=== PATIENT | female | born 1975 | race Caucasian/White ===

== ENCOUNTER 2017-11-24 14:35 | Emergency (ER) | payer OTHER ==
--- NOTE | 2017-11-24 14:44 | ER Report ---
History and Physical Time Seen By MD: 14:50 HPI/ROS CHIEF COMPLAINT: Abdominal pain HISTORY OF PRESENT ILLNESS: This is a 42 year old female. She is having pain in the epigastric area. Has been having pain for the last 4 days, starting on . Seeming to worsen. She has no radiation of pain. Has no nausea. Has had some darks stools, but no blood. No diarrhea. Has been vomiting, and has had a small amount of blood a few times. No fevers or chills. No sick contacts. No bad food exposures. She has never had ulcers in the past, but is on Cellcept with risk for ulcers. REVIEW OF SYSTEMS: Constitutional: No fever or chills. ENT: No sore throat. Cardiovascular: No chest pain. Respiratory: No shortness of breath. Genitourinary: No dysuria. No frequency Musculoskeletal: No musculoskeletal pain. Skin: No rashes. No bruising. Allergies: Uncoded Allergies: MRI CONTRAST (Allergy, Unknown, 11/24/17) Home Meds Active Scripts Ondansetron (ZOFRAN ODT) 4 Mg Tab.rapdis, 4 MG PO Q6H PRN for NAUSEA/VOMITING, #20 TAB.ELDA 0 Refills Prov:PADMINI WELLER MD 11/24/17 Hydrocodone Bit/Acetaminophen (HYDROCODON-ACETAMINOPHEN 5-325) 1 Each Tablet, 1 EACH PO Q4H PRN for PAIN, #12 TAB 0 Refills Prov:PADMINI WELLER MD 11/24/17 Reported Medications Sertraline Hcl (ZOLOFT) 50 Mg Tablet, 1 TAB PO QDAY, TAB 11/24/17 Mycophenolate Mofetil (MYCOPHENOLATE MOFETIL) 500 Mg Tablet, 1000 MG PO BID 11/24/17 Reviewed Nurses Notes: Yes Constitutional Vital Sign - Last 24 Hours 11/24/17 11/24/17 11/24/17 11/24/17 14:45 14:47 15:00 15:05 Temp 98.5 Pulse 98 90 Resp 20 B/P (MAP) 139/84 (102) 139/84 119/83 (95) Pulse Ox 93 93 O2 Delivery Room Air 11/24/17 11/24/17 11/24/17 11/24/17 15:19 15:30 15:35 16:00 Pulse 96 B/P (MAP) 98/67 (77) 113/66 (82) 113/66 (82) Pulse Ox 93 11/24/17 16:05 Pulse 87 Pulse Ox 94 Physical Exam General Appearance: The patient is alert. No acute distress. Eyes: Pupils are equal, round. No pallor, injection or icterus. ENT: Mucous membranes are moist. Normal oral mucosa. Posterior oropharynx is normal. Neck: Supple and non tender. No lymphadenopathy. Respiratory: Lungs are clear to auscultation. Cardiovascular: Regular rate and rhythm. No murmurs, gallops or rubs. Normal capillary refill. Gastrointestinal: Abdomen is soft, tender in epigastric area. No RUQ pain. No ndistended. Guarding, but no rebound. No masses or organomegaly. Normal active bowel sounds. Neurological: Alert and oriented x3. Skin: Warm and dry. Musculoskeletal: No tenderness in palpation of the back and spine. DIFFERENTIAL DIAGNOSIS: After history and physical exam, differential diagnosis was considered for epigastric pain including but not limited to biliary colic, cholecystitis, peptic ulcer disease, pancreatitis, and gastroenteritis. Medical Decision Making Data Points Result Diagram: 11/24/17 1521 11/24/17 1521 Laboratory Hematology Test 11/24/17 14:45 11/24/17 15:21 Urine Color Colorless Urine Clarity Clear Urine pH 5.0 pH (4.8-9.5) Urine Specific [place] 1.001 Urine Protein Negative mg/dL (NEGATIVE) Urine Glucose (UA) Negative mg/dL (NEGATIVE) Urine Ketones Negative mg/dL (NEGATIVE) Urine Blood Small (NEGATIVE) Urine Nitrite Negative (NEGATIVE) Urine Bilirubin Negative (NEGATIVE) Urine Urobilinogen Negative mg/dL (0.2-1.9) Urine Leukocyte Esterase Negative (NEGATIVE) Urine RBC None /HPF (0-2/HPF) Urine WBC <1 /HPF (0-5/HPF) Urine Squamous Epithelial Cells Few /LPF (</=FEW) Urine Bacteria Negative /HPF (NONE-FEW) Urine Mucus None /HPF (NONE-FEW) Red Blood Count 4.47 M/uL (4.17-5.56) Mean Corpuscular Volume 86.4 fL (80.0-96.0) Mean Corpuscular Hemoglobin 30.7 pg (26.0-33.0) Mean Corpuscular Hemoglobin Concent 35.5 g/dL (32.0-36.0) Red Cell Distribution Width 12.7 % (11.5-14.5) Mean Platelet Volume 7.7 fL (7.2-11.1) Neutrophils (%) (Auto) 66.4 % (39.4-72.5) Lymphocytes (%) (Auto) 22.0 % (17.6-49.6) Monocytes (%) (Auto) 10.3 % (4.1-12.4) Eosinophils (%) (Auto) 0.7 % (0.4-6.7) Basophils (%) (Auto) 0.6 % (0.3-1.4) Nucleated RBC Relative Count (auto) 0.1 /100WBC Neutrophils # (Auto) 3.2 K/uL (2.0-7.4) Lymphocytes # (Auto) 1.1 K/uL (1.3-3.6) Monocytes # (Auto) 0.5 K/uL (0.3-1.0) Eosinophils # (Auto) 0.0 K/uL (0.0-0.5) Basophils # (Auto) 0.0 K/uL (0.0-0.1) Nucleated RBC Absolute Count (auto) 0.00 K/uL Prothrombin Time 13.5 seconds (12.0-14.4) Prothromb Time International Ratio 1.03 Activated Partial Thromboplast Time 34 seconds (23-35) Sodium Level 141 mmol/L (137-145) Potassium Level 3.3 mmol/L (3.5-5.0) Chloride Level 106 mmol/L (98-107) Carbon Dioxide Level 23 mmol/L (22-31) Blood Urea Nitrogen 13 mg/dl (7-18) Creatinine 0.80 mg/dl (0.52-1.04) Glomerular Filtration Rate Calc > 60.0 Random Glucose 83 mg/dl (75-110) Calcium Level 8.8 mg/dl (8.4-10.2) Total Bilirubin 0.9 mg/dl (0.2-1.3) Aspartate Amino Transf (AST/SGOT) 24 U/L (0-35) Alanine Aminotransferase (ALT/SGPT) 22 U/L (0-56) Alkaline Phosphatase 75 U/L (0-126) C-Reactive Protein 0.9 mg/dl (<1.0) Total Protein 6.6 g/dl (6.3-8.2) Albumin 4.1 g/dl (3.5-5.0) Amylase Level 102 U/L (0-110) Lipase 103 U/L (23-300) Chemistry Test 11/24/17 14:45 11/24/17 15:21 Urine Color Colorless Urine Clarity Clear Urine pH 5.0 pH (4.8-9.5) Urine Specific [place] 1.001 Urine Protein Negative mg/dL (NEGATIVE) Urine Glucose (UA) Negative mg/dL (NEGATIVE) Urine Ketones Negative mg/dL (NEGATIVE) Urine Blood Small (NEGATIVE) Urine Nitrite Negative (NEGATIVE) Urine Bilirubin Negative (NEGATIVE) Urine Urobilinogen Negative mg/dL (0.2-1.9) Urine Leukocyte Esterase Negative (NEGATIVE) Urine RBC None /HPF (0-2/HPF) Urine WBC <1 /HPF (0-5/HPF) Urine Squamous Epithelial Cells Few /LPF (</=FEW) Urine Bacteria Negative /HPF (NONE-FEW) Urine Mucus None /HPF (NONE-FEW) White Blood Count 4.9 k/uL (4.5-11.0) Red Blood Count 4.47 M/uL (4.17-5.56) Hemoglobin 13.7 g/dL (12.0-16.0) Hematocrit 38.6 % (34.0-47.0) Mean Corpuscular Volume 86.4 fL (80.0-96.0) Mean Corpuscular Hemoglobin 30.7 pg (26.0-33.0) Mean Corpuscular Hemoglobin Concent 35.5 g/dL (32.0-36.0) Red Cell Distribution Width 12.7 % (11.5-14.5) Platelet Count 171 K/uL (150-450) Mean Platelet Volume 7.7 fL (7.2-11.1) Neutrophils (%) (Auto) 66.4 % (39.4-72.5) Lymphocytes (%) (Auto) 22.0 % (17.6-49.6) Monocytes (%) (Auto) 10.3 % (4.1-12.4) Eosinophils (%) (Auto) 0.7 % (0.4-6.7) Basophils (%) (Auto) 0.6 % (0.3-1.4) Nucleated RBC Relative Count (auto) 0.1 /100WBC Neutrophils # (Auto) 3.2 K/uL (2.0-7.4) Lymphocytes # (Auto) 1.1 K/uL (1.3-3.6) Monocytes # (Auto) 0.5 K/uL (0.3-1.0) Eosinophils # (Auto) 0.0 K/uL (0.0-0.5) Basophils # (Auto) 0.0 K/uL (0.0-0.1) Nucleated RBC Absolute Count (auto) 0.00 K/uL Prothrombin Time 13.5 seconds (12.0-14.4) Prothromb Time International Ratio 1.03 Activated Partial Thromboplast Time 34 seconds (23-35) Glomerular Filtration Rate Calc > 60.0 Calcium Level 8.8 mg/dl (8.4-10.2) Total Bilirubin 0.9 mg/dl (0.2-1.3) Aspartate Amino Transf (AST/SGOT) 24 U/L (0-35) Alanine Aminotransferase (ALT/SGPT) 22 U/L (0-56) Alkaline Phosphatase 75 U/L (0-126) C-Reactive Protein 0.9 mg/dl (<1.0) Total Protein 6.6 g/dl (6.3-8.2) Albumin 4.1 g/dl (3.5-5.0) Amylase Level 102 U/L (0-110) Lipase 103 U/L (23-300) Coagulation Test 11/24/17 15:21 Prothrombin Time 13.5 seconds Prothromb Time International Ratio 1.03 Activated Partial Thromboplast Time 34 seconds Urinalysis Test 11/24/17 14:45 Urine Color Colorless Urine Clarity Clear Urine pH 5.0 pH (4.8-9.5) Urine Specific [place] 1.001 Urine Protein Negative mg/dL (NEGATIVE) Urine Glucose (UA) Negative mg/dL (NEGATIVE) Urine Ketones Negative mg/dL (NEGATIVE) Urine Blood Small (NEGATIVE) Urine Nitrite Negative (NEGATIVE) Urine Bilirubin Negative (NEGATIVE) Urine Urobilinogen Negative mg/dL (0.2-1.9) Urine Leukocyte Esterase Negative (NEGATIVE) Urine RBC None /HPF (0-2/HPF) Urine WBC <1 /HPF (0-5/HPF) Urine Squamous Epithelial Cells Few /LPF (</=FEW) Urine Bacteria Negative /HPF (NONE-FEW) Urine Mucus None /HPF (NONE-FEW) EKG/Imaging Imaging ABDOMEN/PELVIS W/O CONTRAST EXAMINATION: CT abdomen/pelvis without IV contrast HISTORY: Epigastric pain TECHNIQUE: CT scan of the abdomen and pelvis performed from the lung base through pubic symphysis without IV contrast One of the following dose optimization techniques was utilized in the performance of this exam: Automated exposure control; adjustment of the mA and/or kV according to the patient's size; or use of an iterative reconstr uction technique. Specific details can be referenced in the facility's radiology CT exam operational policy. COMPARISON STUDIES: None FINDINGS: Liver/Biliary: Liver is unremarkable.. No gallstones Pancreas: Negative Spleen: Negative Adrenal glands: Negative Kidneys/Retroperitoneum: No renal stone or renal obstructive uropathy change. Pelvic structures: Uterus and adnexal regions are unremarkable. Bowel/peritoneum/mesenteries: No colonic mass lesion. No diverticulosis or diverticulitis. Appendix is normal with no appendicitis. No free air. Stomach is somewhat fluid-filled distended. No obvious gastric outlet obstructive process noted. Vessels: Negative Musculoskeletal/body wall: Negative Lymph node assessment: Negative Lower chest: No consolidations. No effusions IMPRESSION: 1. Negative CT scan of the abdomen/pelvis for acute pathology. Report Dictated By: Eliazar Diallo MD at 11/24/2017 4:04 PM ED Course/Re-evaluation Clinical Indication for ER IV: Hydration, IV Access ED Course Labs unremarkable other than mild low potassium. Imaging negative. Discussed results with the patient. Suspect most likely cause would be gastritis or ulcer disease. Recommended starting Zantac or Pepcid. Follow-up with her doctor for re-evaluation. May need endoscopy if not improving. Home with Zofran for nausea and Lortab for pain. Decision to Disposition Date: Nov 24, 2017 Decision to Disposition Time: 16:37 Depart Departure Latest Vital Signs Vital Signs Date Time Temp Pulse Resp B/P (MAP) Pulse Ox O2 Delivery O2 Flow Rate FiO2 11/24/17 16:05 87 94 11/24/17 16:00 113/66 (82) 11/24/17 14:47 98.5 20 Room Air Impression: Primary Impression: Abdominal pain, acute, epigastric Condition: Improved Disposition: HOME OR SELF-CARE New Scripts Ondansetron (ZOFRAN ODT) 4 Mg Tab.rapdis 4 MG PO Q6H PRN for NAUSEA/VOMITING, #20 TAB.ELDA 0 Refills Prov: PADMINI WELLER MD 11/24/17 Hydrocodone Bit/Acetaminophen (HYDROCODON-ACETAMINOPHEN 5-325) 1 Each Tablet 1 EACH PO Q4H PRN for PAIN, #12 TAB 0 Refills Prov: PADMINI WELLER MD 11/24/17 Patient Instructions: Epigastric Pain (ED) Additional Instructions: We did not find a cause for your abdominal pain tonight. We suspect this could be gastritis or ulcer disease and recommend starting an anti-acid medicine like Zantac or Pepcid twice a day. Please follow-up with your doctor this week. Take Lortab 5/325, one every 4 hours as needed for severe pain. Take Zofran 4mg, one every 6 hours as needed for nausea. Return to the ER if you are having worsening pain, fevers/chills, nausea and vomiting. PADMINI WELLER MD Nov 24, 2017 14:44
[2017-11-24] MEDS ORDERED: MYCO500T28 PO (14:47)
[2017-11-24] MEDS ORDERED: SERT-1 PO (14:47)
[2017-11-24] MEDS ORDERED: NS(*) 0.9% 1000 ML BAG 1,000 ML IV ONE (14:57)
[2017-11-24] MEDS ORDERED: PANTOPRAZOLE SOD 40 MG IV VIAL IVP ONE (15:00)
[2017-11-24] MEDS ORDERED: MORPHINE 4 MG/ML SDV IVP ONE (15:00)
[2017-11-24] MEDS ORDERED: ONDANSETRON 4 MG/2 ML VIAL IVP ONE (15:00)
[2017-11-24] MEDS ORDERED: IOPAMIDOL 76% 75 ML INFUS BTL 0 ML ONE (15:12)
[2017-11-24 15:51] LABS: PLATELET COUNT, AUTOMATED 171 K/uL (150-450)
[2017-11-24 15:54] LABS: INR 1.03
[2017-11-24 16:00] VITALS: BP 113/66
--- NOTE | 2017-11-24 16:19 | RADIOLOGY IMAGING REPORT ---
FACILITY: [facility] PATIENT NAME: Hannah Jhaveri : 1975 MR: [id number] V: [id number] EXAM DATE: ORDERING PHYSICIAN: PADMINI WELLER TECHNOLOGIST: Location: [facility] Patient: Hannah Jhaveri : 1975 Visit/Account:[id number] Date of Sevice: 11/24/2017 ABDOMEN/PELVIS W/O CONTRAST EXAMINATION: CT abdomen/pelvis without IV contrast HISTORY: Epigastric pain TECHNIQUE: CT scan of the abdomen and pelvis performed from the lung base through pubic symphysis wit hout IV contrast One of the following dose optimization techniques was utilized in the performance of this exam: Autom ated exposure control; adjustment of the mA and/or kV according to the patient's size; or use of an i terative reconstruction technique. Specific details can be referenced in the facility's radiology C T exam operational policy. COMPARISON STUDIES: None FINDINGS: Liver/Biliary: Liver is unremarkable.. No gallstones Pancreas: Negative Spleen: Negative Adrenal glands: Negative Kidneys/Retroperitoneum: No renal stone or renal obstructive uropathy change. Pelvic structures: Uterus and adnexal regions are unremarkable. Bowel/peritoneum/mesenteries: No c olonic mass lesion. No diverticulosis or diverticulitis. Appendix is normal with no appendicitis. No free air. Stomach is somewhat fluid-filled distended. No obvious gastric outlet obstructive process noted. Vessels: Negative Musculoskeletal/body wall: Negative Lymph node assessment: Negative Lower chest: No consolidations. No effusions IMPRESSION: 1. Negative CT scan of the abdomen/pelvis for acute pathology. Report Dictated By: Eliazar Diallo MD at 11/24/2017 4:04 PM Report E-Signed By: Eliazar Diallo MD at 11/24/2017 4:16 PM WSN:[id number]
[2017-11-24] MEDS ORDERED: ACET/HYDROC 5/325MG TH ER ONLY 2 TAB/BOTTLE PO ONE (16:35)
[2017-11-24] MEDS ORDERED: APAP/HYDROCODONE 325/5 TAB PO ONE (16:35)
[2017-11-24] MEDS ORDERED: ONDANSETRON 4 MG ODT TH SL ONE (16:35)
[2017-11-24] MEDS ORDERED: LOR5/325 PO (16:37)
[2017-11-24] MEDS ORDERED: ONDA4TAB PO (16:37)
== END 2017-11-24 16:52 | disposition home or self-care (01) ==
LOC: ER 14:39
DX: R10.13 Epigastric pain (principal)
CPT/HCPCS: 74176; 81001; 82150; 83690; 85025; 85610; 85730; 86140; 96361; 96374; 96375; 99284; C9113; J2270; J2405; J7030; S0119; 82040; 82247; 82310; 82374; 82435; 82565; 82947; 84075; 84132; 84155; 84295; 84450; 84460; 84520; Q9967